=== PATIENT | male | born 1935 | race Caucasian/White ===

== ENCOUNTER 2016-11-24 11:09 | Emergency (ER) | payer MEDICARE, OTHER ==
--- NOTE | 2016-11-24 11:20 | ER Document Report ---
ED Medical Screen (RME) - General Stated Complaint: DIZZINESS Notes: Patient is a 81 year old male p/w dizzyness that started this morning when he woke up. Alert and oriented to person and place but not time, states that the current month is May. states this is not his normal mental status and normally isnt confused. states yesterday that he was normal and she went to bed around 930pm. admits to mild headache denies chest pain PMH: HTN, HLD, -CVA, TIA, DM, DC, stress test, coronary cath Takes a daily ASA new medication that he started a couple of days ago for his shoulder. Last dose was around 9am. unsure if his s I have greeted and performed a rapid initial assessment of this patient. A comprehensive ED assessment and evaluation of the patient, analysis of test results and completion of the medical decision making process will be conducted by additional ED providers.
--- NOTE | 2016-11-24 12:04 | ER Document Report ---
ED General - General Chief Complaint: Dizziness Stated Complaint: DIZZINESS Time seen by provider: 11:50 Mode of Arrival: Ambulatory Information source: Patient Notes: 81-year-old male who is noted by to be dizzy and confused when he woke this morning. About 8:00. He was normal when he went to bed last night the patient voices no specific complaints right now but confabulates with most questions. reports he was complaining of left shoulder pain yesterday but has not complained about this morning. She reports he was able to ambulate this morning and did not require assistance. He reports he has not had any prior history of episodes like this. They're currently visiting there daughter and live in [place]. Physical Exam: General: Alert, appears well. HEENT: Normocephalic. Atraumatic. PERRLA. Extraocular movements intact. Discs sharp no papilledema sclerae anicteric tympanogram membranes clear Oropharynx clear. Neck: Supple. Non-tender. No carotid bruits no JVD no nuchal rigidity Respiratory: No respiratory distress. Clear and equal breath sounds bilaterally. Cardiovascular: Regular rate and rhythm. Abdominal: Normal Inspection. Soft, non-tender. No distension. Normal Bowel Sounds. Back: Non-tender. No deformity or step off. Extremities: Moves all four extremities. Upper extremities: Normal inspection. Non-tender. Normal color. Normal ROM. Normal temperature. Lower extremities: Normal inspection. Non-tender. No edema. Normal color. Normal ROM. Normal temperature. Neurological: Cranial nerves III-XII grossly intact bilaterally. Strength 5/5 throughout. Sensation intact to light touch. Normal cognition. Patient is alert oriented to person only cerebellar function intact by finger-nose test bilaterally. Normal speech. Psychological: Normal affect. Normal Mood. Skin: Warm. Dry. Normal color. TRAVEL OUTSIDE OF THE [place] IN LAST 30 DAYS: No - Related Data Allergies/Adverse Reactions: No Known Allergies Allergy (Unverified 11/24/16 11:15) Past Medical History - Social History Smoking Status: Never Smoker Chew tobacco use (# tins/day): No Frequency of alcohol use: None Drug Abuse: None Family History: Reviewed & Not Pertinent Patient has suicidal ideation: No Patient has homicidal ideation: No - Past Medical History Cardiac Medical History: Reports: Hx Hypercholesterolemia, Hx Hypertension Renal/ Medical History: Denies: Hx Peritoneal Dialysis Past Surgical History: Reports: Hx Orthopedic Surgery - BILAT KNEES Review of Systems - Review of Systems Constitutional: denies: Chills, Fever EENT: denies: Ear pain, Throat pain Cardiovascular: denies: Chest pain, Dyspnea Respiratory: denies: Cough, Short of breath Gastrointestinal: denies: Abdominal pain, Diarrhea, Nausea, Vomiting Genitourinary: denies: Burning, Dysuria Musculoskeletal: denies: Back pain Skin: denies: Rash Hematologic/Lymphatic: denies: Swollen glands Neurological/Psychological: Confusion Physical Exam - Vital signs Vitals: Resp Pulse Ox 21 H 98 11/24/16 11:41 11/24/16 11:41 Course - Re-evaluation Re-evalutation: 11/24/16 16:57 Multiple reexaminations show no change patient's exam. He has no focal deficits with 5 out of 5 motor function in all 4 extremities and no cranial nerve deficits. His speech is clear but he is oriented person only confabulates with answering detailed questions. Daughter arrives and she reports that the patient was seen in urgent care a few days ago and prescribed baclofen for back pain. He took her first dose of that 2 nights ago and took 3 doses during the day yesterday and one dose this morning. Review alert her shows that the patient's presentation is compatible side effect of baclofen. I think this is a much more convincing explanation than CVA and his workup has otherwise been unremarkable. Family is couple take the patient home and stopping the baclofen. He'll be returning home next week have asked him to follow-up with her provider when they return. Also asked him to return to emergency Department right away for worse symptoms or other problems and they' re in agreement. - Vital Signs Vital signs: Temp Pulse Resp BP Pulse Ox 74 10 L 128/86 H 93 11/24/16 12:06 11/24/16 14:30 11/24/16 14:30 11/24/16 14:30 - Laboratory Result Diagrams: 11/24/16 12:57 11/24/16 12:57 Laboratory results interpreted by me: 11/24/16 11/24/16 11/24/16 12:57 12:57 14:06 RBC 5.75 H Hgb 18.1 H Hct 52.9 H BUN 30 H Glucose 217 H Creatine Kinase 40 L Urine Protein 100 H Urine Glucose (UA) 50 H - Diagnostic Test Radiology reviewed: Image reviewed, Reports reviewed - EKG Interpretation by Me Additional EKG results interpreted by me: 11/24/16 12:04 EKG reviewed by myself shows sinus rhythm at 74 no acute changes Discharge - Discharge Clinical Impression: Adverse drug reaction Condition: Stable Disposition: HOME, SELF-CARE Additional Instructions: Stop taking baclofen. Follow-up with your doctor as soon as you returned home. Return to emergency for right away for worse symptoms or other problems and we will be happy to see you back. The confusion should wear off over the next few days.
[2016-11-24 13:27] LABS: ABSOLUTE BASOPHILS # (AUTO) 0.1 10^3/uL (0.0-0.2); ABSOLUTE EOSINOPHILS # (AUTO) 0.1 10^3/uL (0.0-0.6); ABSOLUTE MONOCYTES (AUTO) 0.8 10^3/uL (0.1-1.4); ABSOLUTE NEUT (AUTO) 6.3 10^3/uL (1.7-8.2); BASOPHILS % (AUTO) 0.6 % (0-2); EOSINOPHILS % (AUTO) 0.7 % (0-6); HEMATOCRIT 52.9 % (37.9-51.0); HEMOGLOBIN 18.1 g/dL (13.5-17.0); HGB HCT DIFFERENCE 1.4; LYMPHOCYTES % (AUTO) 21.3 % (13-45); MEAN CORPUSCULAR HEMOGLOBIN 31.5 pg (27.0-33.4); MEAN CORPUSCULAR HGB CONC 34.3 g/dL (32.0-36.0); MEAN CORPUSCULAR VOLUME 92 fl (80-97); MONOCYTES % (AUTO) 8.9 % (3-13); RED BLOOD COUNT 5.75 10^6/uL (4.35-5.55); RED CELL DISTRIBUTION WIDTH 13.7 % (11.5-14.0); SEGMENTED NEUTROPHILS % (AUTO) 68.5 % (42-78); WHITE BLOOD COUNT 9.2 10^3/uL (4.0-10.5)
[2016-11-24 13:30] LABS: PROTHROMBIN TIME 12.6 SEC (11.4-15.4)
[2016-11-24 13:41] LABS: ALANINE AMINOTRANSFERASE 31 U/L (21-72); ALBUMIN 4.4 g/dL (3.5-5.0); ALKALINE PHOSPHATASE 58 U/L (38-126); ANION GAP 15 (5-19); ASPARTATE AMINO TRANSFERASE 21 U/L (17-59); BILIRUBIN,TOTAL 0.8 mg/dL (0.2-1.3); BLOOD UREA NITROGEN 30 mg/dL (7-20); CALCIUM 9.8 mg/dL (8.4-10.2); CARBON DIOXIDE 26 mmol/L (22-30); CHLORIDE 99 mmol/L (98-107); CREATINE KINASE 40 U/L (55-170); CREATININE RESULT 1.11 mg/dL (0.52-1.25); GLUCOSE 217 mg/dL (75-110); MAGNESIUM 1.9 mg/dL (1.6-2.3); POTASSIUM 4.2 mmol/L (3.6-5.0); SODIUM 140.2 mmol/L (137-145); TOTAL PROTEIN 6.8 g/dL (6.3-8.2)
[2016-11-24 13:53] LABS: CREATINE KINASE MB 2.59 ng/mL (<4.55)
[2016-11-24 14:02] LABS: TROPONIN I 0.092 ng/mL
[2016-11-24 14:52] LABS: APPEARANCE,URINE CLEAR; BILIRUBIN,URINE NEGATIVE (NEGATIVE); GLUCOSE, URINE 50 mg/dL (NEGATIVE); KETONES,URINE NEGATIVE (NEGATIVE); LEUKOCYTE ESTERASE,URINE NEGATIVE (NEGATIVE); NITRITE,URINE NEGATIVE (NEGATIVE); PROTEIN,URINE 100 mg/dL (NEGATIVE); URINE SPECIFIC GRAVITY 1.021; UROBILINOGEN,URINE NEGATIVE mg/dL (<2.0)
[2016-11-24 17:29] VITALS: BP 153/84
--- NOTE | 2016-11-24 20:05 | EKG REPORT ---
SEVERITY:- ABNORMAL ECG - SINUS RHYTHM INFERIOR INFARCT, AGE INDETERMINATE : Confirmed by: Tobin Gaffney 24-Nov-2016 20:04:25
== END 2016-11-24 17:28 | disposition home or self-care (01) ==
LOC: ER 11:09
DX: T50.905A Adverse effect of unspecified drugs, medicaments and biological substances, initial encounter (principal); R42 Dizziness and giddiness; M25.512 Pain in left shoulder
CPT/HCPCS: 36415; 70450; 71020; 80053; 81001; 82550; 82553; 83735; 84484; 85025; 85610; 93005; 93010; 99285